=== PATIENT | male | born 1980 | race African-American/Black ===

== ENCOUNTER 2016-11-26 18:04 | Emergency (ER) | payer MEDICARE ==
[~2016-11-26] VITALS: Ht 190.5 cm; Wt 79.0 kg
[2016-11-26 23:26] VITALS: BP 138/58
== END 2016-11-27 00:57 | disposition home or self-care (01) ==
LOC: ER 18:04
DX: M54.5 Low back pain (principal); G89.29 Other chronic pain; J45.909 Unspecified asthma, uncomplicated
CPT/HCPCS: 99282